=== PATIENT | female | born 1985 | race African-American/Black ===

== ENCOUNTER 2018-10-30 08:07 | Emergency (ER) | payer BC, SELFPAY ==
--- NOTE | 2018-10-30 09:11 | RAD ---
PA AND LATERAL CHEST: Date: 10/30/18 HISTORY: Shortness of breath. Chest pain. COMPARISON: 06/25/13 study. FINDINGS: Heart size and mediastinum are within normal limits. Lungs are clear of infiltrates. No significant b cary findings. IMPRESSION: No active intrathoracic disease. POS: [facility]
--- NOTE | 2018-11-02 13:26 | EKG ---
Test Reason : CHEST PAIN Blood Pressure : / mmHG Vent. Rate : 072 BPM Atrial Rate : 072 BPM P-R Int : 138 ms QRS Dur : 078 ms QT Int : 406 ms P-R-T Axes : 033 044 034 degrees QTc Int : 444 ms Normal sinus rhythm with sinus arrhythmia Normal ECG Confirmed by MEGAN PATTEN, BRENNAN Smith ([id number]), clinical editor MARY FARRELL ([id number]) on 11/02/2018 1:25:52 PM Referred By: Confirmed By:BRENNAN GUZMAN MD
== END 2018-10-30 09:30 | disposition home or self-care (01) ==
LOC: ERS 08:07
DX: J06.9 Acute upper respiratory infection, unspecified (principal); E11.9 Type 2 diabetes mellitus without complications; I10 Essential (primary) hypertension; E78.5 Hyperlipidemia, unspecified; F41.9 Anxiety disorder, unspecified; Z79.899 Other long term (current) drug therapy; Z79.84 Long term (current) use of oral hypoglycemic drugs
CPT/HCPCS: 71046; 93005

== ENCOUNTER 2018-11-06 02:41 | Emergency (ER) | payer BC ==
[2018-11-06] MEDS ORDERED: Aspirin Chewable 81 MG TAB ONE (02:59)
[2018-11-06 03:18] LABS: #Basophils 0.1 thou/uL (0.0-0.2); #Eosinphils 0.3 thou/uL (0.0-0.7); #Lymphocytes 2.2 thou/uL (1.20-3.40); #Monocytes 0.5 thou/uL (0.11-0.59); #Neutrophils 4.7 thou/uL (1.40-6.50); %Eosinophils 4.3 % (0.0-10.0); %Monocytes 6.3 % (0.0-10.0); %Neutrophils 60.5 % (42.0-75.0); Hemoglobin 13.6 g/dL (12.0-16.0); Mean Corpuscular HGB CONC 32.9 g/dL (32.0-36.0); Mean Corpuscular Hemoglobin 29.7 pg (27.0-31.0); Mean Corpuscular Volume 90.3 fL (78.0-98.0); Mean Platelet Volume 9.3 fL (7.4-10.4); Platelet Count 248 thou/uL (130-400); RBC Distribution Width 12.2 % (11.5-14.5); Red Blood Cell (RBC) Count 4.58 mill/uL (4.20-5.40); White Blood Cell (WBC) Count 7.8 thou/uL (4.8-10.8)
[2018-11-06 03:31] LABS: BHCG - Serum Negative (NEGATIVE); Pregs Control Background? CLEAR/WHITE (CLR/WHITE); Pregs Control Bar Appear? YES (CONTROL BAR)
[2018-11-06 03:39] LABS: ALT (SGPT) 30 U/L (8-55); AST (SGOT) 33 U/L (5-34); Albumin 4.2 g/dL (3.5-5.0); Alkaline Phosphatase 63 U/L (40-150); Anion Gap 13 mmol/L (10-20); BUN (Urea Nitrogen) 11 mg/dL (7.0-18.7); Bilirubin, Total 0.3 mg/dL (0.2-1.2); Calc. Creatinine Clearance 0 mL/min (70-130); Calcium 9.3 mg/dL (7.8-10.44); Carbon Dioxide 23 mmol/L (22-29); Chloride 104 mmol/L (98-107); Estimated GFR-MDRD 70; Globulin 3.3 g/dL (2.4-3.5); Glucose 111 mg/dL (70-105); Potassium 4.4 mmol/L (3.5-5.1); Protein, Total 7.5 g/dL (6.0-8.3); Sodium 136 mmol/L (136-145)
--- NOTE | 2018-11-06 07:25 | RAD ---
CHEST 1 VIEW: Date: 11/06/18 INDICATION: 33-year-old female with upper respiratory tract symptoms. COMPARISON: Prior exam dated 10/30/18. FINDINGS: Lungs are clear. Heart size is normal. No acute osseous abnormality is evident. IMPRESSION: No acute cardiopulmonary abnormality. POS: [facility]
--- NOTE | 2018-11-09 12:19 | EKG ---
Test Reason : Blood Pressure : / mmHG Vent. Rate : 078 BPM Atrial Rate : 078 BPM P-R Int : 146 ms QRS Dur : 076 ms QT Int : 398 ms P-R-T Axes : 036 028 025 degrees QTc Int : 453 ms Normal sinus rhythm Normal ECG Confirmed by LAI ANTHONY M.D. ([id number]), news videotape editor MARY FARRELL ([id number]) on 11/09/2018 12:19:20 PM Referred By: Confirmed By:LAI ANTHONY M.D.
== END 2018-11-06 03:56 | disposition home or self-care (01) ==
LOC: ERS 02:41
DX: J06.9 Acute upper respiratory infection, unspecified (principal); E11.9 Type 2 diabetes mellitus without complications; I10 Essential (primary) hypertension; E78.5 Hyperlipidemia, unspecified; F41.9 Anxiety disorder, unspecified; Z79.899 Other long term (current) drug therapy; Z79.51 Long term (current) use of inhaled steroids; Z79.84 Long term (current) use of oral hypoglycemic drugs
CPT/HCPCS: 71045; 80053; 84484; 84703; 85025; 93005